=== PATIENT | female | born 1945 | race Caucasian/White ===

== ENCOUNTER → 2016-07-04 | Outpatient (CLI) | payer MEDICARE, OTHER ==
[~2016-07-04] MED LIST: AMLODIPINE BESYL5 MG PO; ASPIR 8181 M1 PO; CALTRATE 6001 TABLE1 PO; CRESTOR10 MG PO; ENALAPRIL MALEA20 MG PO; FLEX-A-MIN PO; HYDROCHLOROTHIA25 MG PO; MULTI VITAMIN1 EACH PO; OMEGA 3 1,0001 EACH PO
== END | disposition home or self-care (01) ==
LOC: CDC 12:19
DX: R94.31 Abnormal electrocardiogram [ECG] [EKG] (principal); S83.271D Complex tear of lateral meniscus, current injury, right knee, subsequent encounter; S83.231D Complex tear of medial meniscus, current injury, right knee, subsequent encounter; M17.11 Unilateral primary osteoarthritis, right knee
CPT/HCPCS: 93000